=== PATIENT | male | born 1960 | race Caucasian/White ===

== ENCOUNTER 2025-01-01 15:07 | Emergency (ER) | payer OTHER ==
[2025-01-01 15:18] VITALS: BP 125/55; PULSE 66; RESP 16; TEMP 98.7; BMI 24.7
== END 2025-01-01 17:35 | disposition home or self-care (01) ==
LOC: JER 15:07
DX: S01.112A Laceration without foreign body of left eyelid and periocular area, initial encounter (principal); W01.0XXA Fall on same level from slipping, tripping and stumbling without subsequent striking against object, initial encounter; Y93.01 Activity, walking, marching and hiking
CPT/HCPCS: 70450-TC; 72125-TC; 93005; 93010; 99284-25